=== PATIENT | female | born 1985 | race Caucasian/White ===

== ENCOUNTER 2016-12-03 21:05 | Emergency (ER) | payer SELFPAY ==
[~2016-12-03] VITALS: Ht 160 cm; Wt 65.8 kg
[2016-12-03 21:20] VITALS: BP 130/74
--- NOTE | 2016-12-03 23:20 | NUR ---
CALLED PATIENT MULTIPLE TIMES PER ER MD REQUEST FOR PATIENT TO RETURN TO ER. SPOKE TO PATIENT'S BF AND WILL RELAY THE MESSAGE TO PATIENT TO CALL BACK.
--- NOTE | 2016-12-04 00:25 | NUR ---
Patient ambulated to bed 04.
--- NOTE | 2016-12-04 00:36 | NUR ---
31Y/F PATIENT PRESENT TO ED WITH C/O ABDOMINAL PAIN. PATIENT STATES THAT SHE WAS DIAGNOSED UTI 2 WKS AGO AND WAS TREATED BY CLINIC SUPERVISOR WITH ATB. TODAY PAIN INCREASES. PT.IUP 9 WKS. HX.ASTHMA, ANXIETY; SKIN IS PINK/WARM/DRY; AAOX4 WITH EVEN AND STEADY GAIT; LUNGS CLEAR BL; HR EVEN AND REGULAR; PT DENIES ANY FEVER, CP, SOB, OR COUGH AT THIS TIME; PATIENT STATES PAIN OF 5/10 AT THIS TIME; VSS; PATIENT POSITIONED FOR COMFORT; HOB ELEVATED; BEDRAILS UP X2; BED DOWN. ER MD MADE AWARE OF PT STATUS.
--- NOTE | 2016-12-04 01:42 | NUR ---
Patient back from US via wheelchair per tech.
--- NOTE | 2016-12-04 02:15 | NUR ---
Patient discharged with v/s stable. Written and verbal after care instructions given and explained. Patient alert, oriented and verbalized understanding of instructions. Ambulatory with steady gait. All questions addressed prior to discharge. ID band removed. Patient advised to follow up with PMD. Rx of KEFLEX 500 MG, [facility] +DHA SOFTGEL given. Patient educated on indication of medication including possible reaction and side effects. Opportunity to ask questions provided and answered.
[2016-12-04 02:16] VITALS: BP 130/74
== END 2016-12-04 02:15 | disposition home or self-care (01) ==
LOC: MED 21:05
DX: O23.41 Unspecified infection of urinary tract in pregnancy, first trimester (principal); O99.511 Diseases of the respiratory system complicating pregnancy, first trimester; J45.909 Unspecified asthma, uncomplicated; F41.9 Anxiety disorder, unspecified; Z3A.09 9 weeks gestation of pregnancy

== ENCOUNTER 2017-05-24 18:10 | Observation (INO) | payer OTHER | END 2017-05-24 23:00 | disposition left against medical advice (07) | LOC: MLD 18:10 | PROVIDERS: ADMIT Obstetrics & Gynecology; ATTEND Obstetrics & Gynecology | DX: O26.899 Other specified pregnancy related conditions, unspecified trimester (principal); M54.5 Low back pain; Z3A.00 Weeks of gestation of pregnancy not specified | CPT/HCPCS: G0378 ==

== ENCOUNTER 2019-03-01 21:38 | Emergency (ER) | payer OTHER ==
[~2019-03-01] VITALS: Ht 160 cm; Wt 74.8 kg
[2019-03-01 21:40] VITALS: BP 133/90
--- NOTE | 2019-03-01 21:43 | NUR ---
TO LOBBY A/W BED, XRAY AMBULATORY
--- NOTE | 2019-03-01 22:09 | NUR ---
PT AMBULATED TO ER BED 12
--- NOTE | 2019-03-01 22:20 | NUR ---
33 YO F BIB SELF PRESENTS TO ED C/O 06/28 LEFT INDEX AND MIDDLE FINGER PAIN X 2 DAYS RADIATING TO UPPER ARM. INDEX FINGER HAS LARGE SCAR WITH SWELLING AND DEFORMITY NOTED. PT STATES SHE JAMMED FINGER IN CAR DOOR SEVERAL MONTHS AGO AND HAD SURGERY. SHE STATES THERE WERE 3 SCREWS PLACED IN FINGER. PT STATES SHE WAS GIVEN HYDROCODONE FOR PAIN BUT RAN OUT OF RX. -- PT AWAKE, A/O X 4. APPEARS CALM. IS COOPERATIVE. ANSWERING QUESTIONS APPROPRIATELY. BEHAVIOR AGE APPROPRIATE. -- SKIN PINK, WARM, DRY. BREATHING EVEN, UNLABORED. -- CMS IN TACT. PMH-- DENIES
[2019-03-01 23:10] VITALS: BP 133/90
== END 2019-03-01 23:10 | disposition home or self-care (01) ==
LOC: MED 21:38
DX: M79.645 Pain in left finger(s) (principal); J45.909 Unspecified asthma, uncomplicated
CPT/HCPCS: 73140; 99283

== ENCOUNTER 2019-05-12 14:07 | Emergency (ER) | payer OTHER ==
[~2019-05-12] VITALS: Ht 160 cm; Wt 70.3 kg
[2019-05-12 14:24] VITALS: BP 131/82
--- NOTE | 2019-05-12 14:29 | NUR ---
WAIT IN LOBBY,VSS.
--- NOTE | 2019-05-12 15:08 | NUR ---
PT TO BED 10 WITH STEADY GAIT
--- NOTE | 2019-05-12 15:35 | NUR ---
C/O LOWER ABDOMINAL PAIN RADIATING TO LOWER BACK, NAUSEA AND DIARRHEA X 2 WEEKS. PAIN 2/10. PATIENT STATES PAIN WORSENS AFTER EATING. BOWEL SOUNDS ACTIVE IN ALL 4 QUADRANTS, ABDOMEN SOFT AND FLAT. AA0X4. VSS. BED IS DOWN, LOCKED, EBD RIAL X 1, ERMD TO SEE PT. MED HX: INDEX & MIDDLE FINGER OF LEFT HAND SURGERY,DEPRESSION,BIPOLAR
--- NOTE | 2019-05-12 15:43 | NUR ---
20 G INSRTED, LABS DRAWN BEDSIDE
--- NOTE | 2019-05-12 16:24 | NUR ---
DR ATWOOD AT BEDSIDE
[2019-05-12 16:37] LABS: BASOPHILS % (AUTO) 0.5 % (0.0-2.0); EOSINOPHILS # (AUTO) 0.1 K/uL (0-0.4); EOSINOPHILS % (AUTO) 1.6 % (0.0-4.0); HEMATOCRIT 45.5 % (36-48); HEMOGLOBIN 15.2 g/dL (12.0-16.0); LYMPHOCYTES # (AUTO) 2.6 K/uL (2.5-16.5); LYMPHOCYTES % (AUTO) 37.6 % (20.5-51.1); MEAN CORPUSCULAR HEMOGLOBIN 31 pg (27-31); MEAN CORPUSCULAR HGB CONC 33 g/dL (33-37); MEAN CORPUSCULAR VOLUME 93.4 fL (80-94); MONOCYTES # (AUTO) 0.5 K/uL (0.8-1.0); MONOCYTES % (AUTO) 6.9 % (1.7-9.3); NEUTROPHILS # (AUTO) 3.6 K/uL (1.8-7.7); NEUTROPHILS % (AUTO) 53.4 % (42.2-75.2); PLATELET COUNT (AUTO) 178 K/uL (140-450); RED BLOOD CELL COUNT(AUTO) 4.87 MIL/uL (4.20-5.40); RED CELL DISTRIBUTION WIDTH 13.3 % (11.6-13.7); WHITE BLOOD COUNT (AUTO) 6.8 K/uL (4.8-10.8)
[2019-05-12 16:39] LABS: APPEARANCE,URINE CLEAR (CLEAR); BILIRUBIN,URINE NEGATIVE (NEGATIVE); BLOOD, URINE NEGATIVE (NEGATIVE); COLOR,URINE YELLOW (YELLOW); LEUKOCYTE ESTERASE ,URINE NEGATIVE (NEGATIVE); NITRITE, URINE NEGATIVE (NEGATIVE); PH,URINE 7.5 (5.0-9.0); UGLUCOSE NEGATIVE (NEGATIVE)
--- NOTE | 2019-05-12 16:41 | NUR ---
US AT BEDSIDE
[2019-05-12 16:43] LABS: ANION GAP 13.3 (8-16); CARBON DIOXIDE 27.1 mmol/L (21-32); CREATININE 0.7 mg/dL (0.6-1.3); POTASSIUM 3.4 mmol/L (3.5-5.1)
[2019-05-12 16:48] LABS: ALBUMIN 3.5 g/dL (3.4-5.0); TOTAL BILIRUBIN 0.2 mg/dL (0.0-1.0)
--- NOTE | 2019-05-12 17:21 | NUR ---
pt states she is in pain, dr rodriguez made aware.
--- NOTE | 2019-05-12 17:54 | NUR ---
PT REQUESTING PAIN MEDICATIONS, PER VERBAL ORDER GIVE 2 MG MORPHINE IVP
[2019-05-12] MEDS ORDERED: MORPHINE SULFATE 2 MG/ML SYR IVP ONE (17:55)
[2019-05-12 18:45] VITALS: BP 100/62
== END 2019-05-12 18:45 | disposition home or self-care (01) ==
LOC: MED 14:07
DX: N83.202 Unspecified ovarian cyst, left side (principal); J45.909 Unspecified asthma, uncomplicated
CPT/HCPCS: 36415; 76856; 80053; 81003; 81025; 83690; 85025; 96374; 99284; J2270; Q0092

== ENCOUNTER 2019-06-18 10:52 | Emergency (ER) | payer OTHER ==
[~2019-06-18] VITALS: Ht 160 cm; Wt 69.4 kg
[2019-06-18 10:57] VITALS: BP 140/73
[2019-06-18] MEDS ORDERED: AMPH10CE PO (11:00)
[2019-06-18] MEDS ORDERED: ARIP5TAB8 PO (11:00)
[2019-06-18 11:57] VITALS: BP 130/80
== END 2019-06-18 11:57 | disposition home or self-care (01) ==
LOC: MED 10:52
DX: R11.0 Nausea (principal); R10.9 Unspecified abdominal pain; F32.9 Major depressive disorder, single episode, unspecified; Z85.9 Personal history of malignant neoplasm, unspecified; Z98.890 Other specified postprocedural states; Z79.899 Other long term (current) drug therapy
CPT/HCPCS: 81002; 81025; 99283

== ENCOUNTER 2020-06-09 11:46 | Emergency (ER) | payer OTHER ==
[~2020-06-09] VITALS: Ht 160 cm; Wt 74.8 kg
[~2020-06-09 11:46] MED LIST: AMPH10CE PO; ARIP5TAB8 PO
[2020-06-09 11:48] VITALS: BP 111/61
--- NOTE | 2020-06-09 11:55 | NUR ---
PT IN WHEELCHAIR TO ER BED 11
--- NOTE | 2020-06-09 12:06 | NUR ---
34 YO FEMALE CO 06/28 GENERALIZED ABD PAIN SINCE 06/06/20. PT HAD TUMMY TUCK IN [place]. PT HAS HEMOVAC IN PLACE WITH BRIGHT RED DRAINAGE IN TUBE ONLY. BANDAGES WERE UNDONE TO VISUALIZE THE INCISION SITES. BRUISING AND PAIN TO TOUCH ON LEFT HIP. INCISION SITES HAVE DRIED BLOOD AND SUTURES IN PLACE, BUT NO DISCHARGE NOTED. PT IS A/O X4. NO MEDS- NO RX
[2020-06-09] MEDS ORDERED: MORPHINE SULFATE 2 MG/ML SYR IM ONE (12:30)
[2020-06-09 13:17] VITALS: BP 111/61
--- NOTE | 2020-06-09 13:17 | NUR ---
Patient discharged with v/s stable. Written and verbal after care instructions given and explained. Patient alert, oriented and verbalized understanding of instructions. Wheel Chair Assisted with to home. All questions addressed prior to discharge. ID band removed. Patient advised to follow up with PMD. Rx of COLACE AND NORCO given. Patient educated on indication of medication including possible reaction and side effects. Opportunity to ask questions provided and answered.
== END 2020-06-09 13:17 | disposition home or self-care (01) ==
LOC: MED 11:46
DX: G89.18 Other acute postprocedural pain (principal); R10.84 Generalized abdominal pain; F32.9 Major depressive disorder, single episode, unspecified; Z98.890 Other specified postprocedural states; Z79.899 Other long term (current) drug therapy
CPT/HCPCS: 81025; 96372; 99283; J2270

== ENCOUNTER 2020-06-18 20:20 | Emergency (ER) | payer OTHER ==
[~2020-06-18] VITALS: Ht 160 cm; Wt 77.6 kg
[2020-06-18 20:23] VITALS: BP 129/79
--- NOTE | 2020-06-18 20:23 | NUR ---
PT AMBULATED TO ER BED 12 W/ STEADY GAIT.
--- NOTE | 2020-06-18 20:23 | NUR ---
34 Y/O FEMALE PRESENTED TO ED C/O BL LOWER EXTREMITY SWELLING X 2 WEEKS. PT STATES SHE HAD ABDOMINAL SURGERY 2 WEEKS AGO AND HAS HAD SWELLING IN HER LEGS SINCE THEN. PT RATES PAIN 8/10 , DESCRIBES BURNING SENSATION. + BL PEDAL PULSES , CAP REFIL < 3 SEC , +CMS , + ROM . PT STATES PAIN IS WORSE WHEN SHE IS WALKING. PT RESTING IN BED , LOCKED AND IN LOWEST POSITION,HOB ELEVATED, SIDE RAIL X1. ERMD MADE AWARE OF PT STATUS. PMH: BIPOLAR, DEPRESSION NKA
--- NOTE | 2020-06-18 21:00 | NUR ---
LAB AT BEDSIDE.
[2020-06-18 21:10] LABS: BASOPHILS % (AUTO) 0.4 % (0.0-2.0); EOSINOPHILS # (AUTO) 0.3 K/uL (0-0.4); EOSINOPHILS % (AUTO) 2.8 % (0.0-4.0); HEMATOCRIT 30.5 % (36-48); HEMOGLOBIN 10.1 g/dL (12.0-16.0); LYMPHOCYTES # (AUTO) 2.6 K/uL (2.5-16.5); LYMPHOCYTES % (AUTO) 24.6 % (20.5-51.1); MEAN CORPUSCULAR HEMOGLOBIN 32 pg (27-31); MEAN CORPUSCULAR HGB CONC 33 g/dL (33-37); MEAN CORPUSCULAR VOLUME 96.4 fL (80-94); MONOCYTES # (AUTO) 0.7 K/uL (0.8-1.0); MONOCYTES % (AUTO) 6.8 % (1.7-9.3); NEUTROPHILS % (AUTO) 65.4 % (42.2-75.2); PLATELET COUNT (AUTO) 385 K/uL (140-450); RED BLOOD CELL COUNT(AUTO) 3.16 MIL/uL (4.20-5.40); RED CELL DISTRIBUTION WIDTH 12.8 % (11.6-13.7); WHITE BLOOD COUNT (AUTO) 10.8 K/uL (4.8-10.8)
[2020-06-18] MEDS ORDERED: KETOROLAC 30 MG/ML VIAL IM ONE (21:15)
[2020-06-18 21:25] LABS: ALBUMIN 2.7 g/dL (3.4-5.0); ANION GAP 12.1 (8-16); CARBON DIOXIDE 29.2 mmol/L (21-32); CREATININE 0.9 mg/dL (0.6-1.3); POTASSIUM 4.3 mmol/L (3.5-5.1); TOTAL BILIRUBIN 0.4 mg/dL (0.0-1.0)
[2020-06-18 22:22] LABS: APPEARANCE,URINE SL CLOUDY (CLEAR); BILIRUBIN,URINE NEGATIVE (NEGATIVE); BLOOD, URINE 3+ (NEGATIVE); COLOR,URINE YELLOW (YELLOW); LEUKOCYTE ESTERASE ,URINE TRACE (NEGATIVE); NITRITE, URINE NEGATIVE (NEGATIVE); UGLUCOSE NEGATIVE (NEGATIVE)
--- NOTE | 2020-06-18 22:23 | NUR ---
Note undone in EDM - 06/18/20 at 2254 by CORTEZ 34 Y/O FEMALE PRESENTED TO ED C/O BL LOWER EXTREMITY SWELLING X 2 WEEKS. PT STATES SHE HAD ABDOMINAL SURGERY 2 WEEKS AGO AND HAS HAD SWELLING IN HER LEGS SINCE THEN. PT RATES PAIN 8/10 , DESCRIBES BURNING SENSATION. + BL PEDAL PULSES , CAP REFIL < 3 SEC , +CMS , + ROM . PT STATES PAIN IS WORSE WHEN SHE IS WALKING. PT RESTING IN BED , LOCKED AND IN LOWEST POSITION,HOB ELEVATED, SIDE RAIL X1. ERMD MADE AWARE OF PT STATUS. PMH: BIPOLAR, DEPRESSION NKA
[2020-06-18 22:33] VITALS: BP 129/79
--- NOTE | 2020-06-18 22:33 | NUR ---
Patient discharged with v/s stable. Written and verbal after care instructions given and explained. Patient alert, oriented and verbalized understanding of instructions. Ambulatory with steady gait. All questions addressed prior to discharge. ID band removed. Patient advised to follow up with PMD. Rx of LASIX given. Patient educated on indication of medication including possible reaction and side effects. Opportunity to ask questions provided and answered.
[2020-06-18 22:50] LABS: RBC,URINE 0-5 /HPF (0-5)
== END 2020-06-18 22:33 | disposition home or self-care (01) ==
LOC: MED 20:20
DX: R60.9 Edema, unspecified (principal); Z79.899 Other long term (current) drug therapy; Z98.870 Personal history of in utero procedure during pregnancy
CPT/HCPCS: 36415; 71045; 80053; 81001; 81025; 85025; 87086; 96372; 99284; J1885; Q0092

== ENCOUNTER 2020-07-07 20:02 | Emergency (ER) | payer OTHER ==
[~2020-07-07] VITALS: Ht 160 cm; Wt 72.6 kg
[2020-07-07 20:25] VITALS: BP 130/90
--- NOTE | 2020-07-07 20:45 | NUR ---
PT AMBULATED TO BED 12 WITH STEADY GAIT.
[2020-07-07 21:12] LABS: BASOPHILS % (AUTO) 0.6 % (0.0-2.0); EOSINOPHILS # (AUTO) 0.1 K/uL (0-0.4); EOSINOPHILS % (AUTO) 1.4 % (0.0-4.0); HEMATOCRIT 39.5 % (36-48); LYMPHOCYTES # (AUTO) 2.2 K/uL (2.5-16.5); LYMPHOCYTES % (AUTO) 34.6 % (20.5-51.1); MEAN CORPUSCULAR HEMOGLOBIN 31 pg (27-31); MEAN CORPUSCULAR HGB CONC 33 g/dL (33-37); MEAN CORPUSCULAR VOLUME 92.2 fL (80-94); MONOCYTES # (AUTO) 0.5 K/uL (0.8-1.0); MONOCYTES % (AUTO) 7.7 % (1.7-9.3); NEUTROPHILS # (AUTO) 3.6 K/uL (1.8-7.7); NEUTROPHILS % (AUTO) 55.7 % (42.2-75.2); PLATELET COUNT (AUTO) 259 K/uL (140-450); RED BLOOD CELL COUNT(AUTO) 4.28 MIL/uL (4.20-5.40); RED CELL DISTRIBUTION WIDTH 12.9 % (11.6-13.7); WHITE BLOOD COUNT (AUTO) 6.5 K/uL (4.8-10.8)
[2020-07-07 21:12] LABS: APPEARANCE,URINE CLEAR (CLEAR); BILIRUBIN,URINE NEGATIVE (NEGATIVE); BLOOD, URINE 2+ (NEGATIVE); COLOR,URINE YELLOW (YELLOW); LEUKOCYTE ESTERASE ,URINE NEGATIVE (NEGATIVE); NITRITE, URINE NEGATIVE (NEGATIVE); UGLUCOSE NEGATIVE (NEGATIVE)
--- NOTE | 2020-07-07 21:17 | NUR ---
PT HAD A TUMMY TUCK IN [place] 06/07/20 AND WENT LAST WEEK TO HAVE HER SUTURES REMOVED. SHE BELIEVES SHE HAS AN INFECTION TO THE AREA WHERE HER BELLY BUTTON NOW IS. REDNESS, SWELLING, AND DRAINAGE (SANGANIOUS) TO AREA. PT C/O SHARP 10/10 INTERMITTENT PAIN. AFEBRILE, NO N/V/D. BED IN LOWEST POSITION AND SIDERAIL UP X 1. NKA NO HX
[2020-07-07 21:19] LABS: WBC,URINE 0-5 /HPF (0-5)
[2020-07-07] MEDS ORDERED: MORPHINE SULFATE 2 MG/ML SYR IVP STA (21:21)
[2020-07-07] MEDS ORDERED: NACL 0.9% 1,000 ML IV ONE (21:25)
[2020-07-07 21:28] LABS: ALBUMIN 3.7 g/dL (3.4-5.0); ANION GAP 12.7 (8-16); CARBON DIOXIDE 28.6 mmol/L (21-32); CREATININE 0.9 mg/dL (0.6-1.3); POTASSIUM 3.3 mmol/L (3.5-5.1); TOTAL BILIRUBIN 0.3 mg/dL (0.0-1.0)
--- NOTE | 2020-07-07 22:00 | NUR ---
PT RESTING MORE COMFORTABLY AT THIS TIME. PAIN HAS DECREASED
--- NOTE | 2020-07-07 22:13 | NUR ---
PT TO CT VIA WHEELCHAIR. CONSENT SIGNED BY PT
[2020-07-07] MEDS ORDERED: MORPHINE SULFATE 4 MG/ML SYR IVP SCH (23:45)
[2020-07-08] MEDS ORDERED: ACETAMINOPHEN 325 MG TAB PO PRN
[2020-07-08] MEDS ORDERED: NACL 0.9% 1,000 ML IV SCH
[2020-07-08] MEDS ORDERED: LORazepam 2 MG/ML VIAL IVP PRN
[2020-07-08] MEDS ORDERED: ONDANSETRON 4 MG/2 ML VIAL IVP PRN
[2020-07-08] MEDS ORDERED: HYDROcodone/APAP 5/325 MG 1 TAB TAB PO PRN
[2020-07-08] MEDS ORDERED: MORPHINE SULFATE 2 MG/ML SYR IVP PRN
[2020-07-08] MEDS ORDERED: PIPERACILLIN/TAZOBACTAM 3.375 GM in DEXTROSE 5% 50 ML IV ONE (00:30)
[2020-07-08] MEDS ORDERED: PIPERACILLIN/TAZOBACTAM 3.375 GM VIAL IV ONE (00:33)
--- NOTE | 2020-07-08 00:46 | NUR ---
PT WAS TO BE ADMITTED TO MED/SURG BUT STATES SHE'S UNABLE TO STAY DUE TO HAVING 2 CHILDREN AT HOME AND NO ONE TO WATCH THEM. PT SIGNING AMA PAPERWORK
[2020-07-08 00:59] VITALS: BP 127/87
--- NOTE | 2020-07-08 01:01 | NUR ---
PT LEFT AMA BUT WAS GIVEN PRESCRIPTIONS AND TOLD TO FOLLOW-UP WITH PCP TOMORROW. IT SYMPTOMS WORSEN PT TOLD TO COME BACK TO ED
--- NOTE | 2020-07-08 01:01 | NUR ---
Patient does not wish to proceed with medical care recommended by DR JAQUEZ. Patient given information related to possible complications, up to and including , which could occur as a result of leaving hospital at this time. Patient verbalizes understanding of risks involved leaving against medical advice. Patient has signed AMA form.
[2020-07-08] MEDS ORDERED: PIPERACILLIN/TAZOBACTAM 3.375 GM in DEXTROSE 5% 50 ML IV SCH (05:00)
[2020-07-08] MEDS ORDERED: ENOXAPARIN 40 MG/0.4 ML SYR SUBQ SCH (09:00)
[2020-07-08] MEDS ORDERED: KETOROLAC 30 MG/ML VIAL ONE (19:00)
== END 2020-07-08 01:00 | disposition left against medical advice (07) ==
LOC: MED 20:02
DX: T81.40XA Infection following a procedure, unspecified, initial encounter (principal); L03.311 Cellulitis of abdominal wall; Z79.899 Other long term (current) drug therapy; Y83.8 Other surgical procedures as the cause of abnormal reaction of the patient, or of later complication, without mention of misadventure at the time of the procedure
CPT/HCPCS: 36415; 74177; 80053; 81001; 82150; 83690; 84703; 85025; 87040; 87426; 96361; 96365; 96375; 96376; 99285; J1885; J2270; J2543; J7030; Q9967

== ENCOUNTER 2020-07-08 17:29 | Emergency (ER) | payer OTHER ==
[~2020-07-08] VITALS: Ht 160 cm; Wt 72.6 kg
[2020-07-08 17:40] VITALS: BP 121/85
--- NOTE | 2020-07-08 17:41 | NUR ---
Patient ambulated to bed 4. RN evaluating patient at bedside.
--- NOTE | 2020-07-08 17:59 | NUR ---
Dr. Mendez is evaluating the patient at bedside.
[2020-07-08] MEDS ORDERED: metroNIDAZOLE 500 MG/NS PREMIX 100 ML IV ONE ×2 (18:05→18:30)
[2020-07-08] MEDS ORDERED: NACL 0.9% 1,000 ML IV ONE (18:05)
[2020-07-08] MEDS ORDERED: KETOROLAC 30 MG/ML VIAL IVP ONE (18:10)
[2020-07-08] MEDS ORDERED: HYDROcodone/APAP 5/325 MG 1 TAB TAB PO PRN (18:15)
[2020-07-08] MEDS ORDERED: MORPHINE SULFATE 4 MG/ML SYR IVP PRN (18:15)
[2020-07-08] MEDS ORDERED: ACETAMINOPHEN 325 MG TAB PO PRN (18:15)
[2020-07-08] MEDS ORDERED: NACL 0.9% 1,000 ML IV SCH (18:15)
[2020-07-08] MEDS ORDERED: ONDANSETRON 4 MG/2 ML VIAL IVP PRN (18:15)
[2020-07-08 18:38] LABS: RED BLOOD CELL COUNT(AUTO) 4.13 MIL/uL (4.20-5.40); WHITE BLOOD COUNT (AUTO) 5.6 K/uL (4.8-10.8)
--- NOTE | 2020-07-08 18:38 | NUR ---
Dr. Resendiz is evaluating the patient at bedside.
--- NOTE | 2020-07-08 18:38 | NUR ---
T WAS HERE YESTERDAY D/T PAIN AND CYSTS IN ABD. PT WAS SUPPOSED TO BE ADMITTED LAST NIGHT BUT REFUSED. PT STILL HAS PAIN IN HER ABD 5 RIGHT NOW. PT AOX4 , AFIBRILE , AMBULATORY WITH STEADY GAIT , SCE , FLAT SOFT ABDOMEN. PMHXS ASTHMA
[2020-07-08 18:39] LABS: BASOPHILS % (AUTO) 0.6 % (0.0-2.0); EOSINOPHILS % (AUTO) 1.7 % (0.0-4.0); HEMOGLOBIN 12.5 g/dL (12.0-16.0); LYMPHOCYTES # (AUTO) 2.2 K/uL (2.5-16.5); LYMPHOCYTES % (AUTO) 39.5 % (20.5-51.1); MEAN CORPUSCULAR HEMOGLOBIN 30 pg (27-31); MEAN CORPUSCULAR HGB CONC 33 g/dL (33-37); MONOCYTES # (AUTO) 0.4 K/uL (0.8-1.0); NEUTROPHILS # (AUTO) 2.9 K/uL (1.8-7.7); NEUTROPHILS % (AUTO) 51.2 % (42.2-75.2); PLATELET COUNT (AUTO) 244 K/uL (140-450); RED CELL DISTRIBUTION WIDTH 12.8 % (11.6-13.7)
[2020-07-08 18:40] LABS: EOSINOPHILS # (AUTO) 0.1 K/uL (0-0.4)
--- NOTE | 2020-07-08 18:40 | NUR ---
DR Ba AT BEDSIDE EVALUATING PT.
[2020-07-08 18:47] LABS: APPEARANCE,URINE HAZY (CLEAR); BILIRUBIN,URINE NEGATIVE (NEGATIVE); BLOOD, URINE 3+ (NEGATIVE); COLOR,URINE YELLOW (YELLOW); UGLUCOSE NEGATIVE (NEGATIVE)
[2020-07-08 18:48] LABS: LEUKOCYTE ESTERASE ,URINE TRACE (NEGATIVE); NITRITE, URINE NEGATIVE (NEGATIVE)
[2020-07-08 18:52] LABS: RBC,URINE >100 /HPF (0-5)
--- NOTE | 2020-07-08 18:54 | NUR ---
DC ALL MEDS AND IV PER DR ANTONIO AND DR ELLER.
[2020-07-08 18:57] LABS: ANION GAP 10.4 (8-16); CARBON DIOXIDE 29.3 mmol/L (21-32); CREATININE 0.8 mg/dL (0.6-1.3); POTASSIUM 3.7 mmol/L (3.5-5.1); TOTAL BILIRUBIN 0.3 mg/dL (0.0-1.0)
[2020-07-08 18:58] LABS: ALBUMIN 3.5 g/dL (3.4-5.0)
[2020-07-08 19:03] LABS: PROTHROMBIN TIME 9.8 secs (10.8-13.4)
--- NOTE | 2020-07-08 19:03 | NUR ---
VERBAL ORDER AND READ BACK FOR TORADOL IVP.
[2020-07-08 19:15] VITALS: BP 121/85
--- NOTE | 2020-07-08 19:16 | NUR ---
Patient discharged with v/s stable. Written and verbal after care instructions given and explained regarding abdominal pain. Patient alert, oriented and verbalized understanding of instructions. Ambulatory with steady gait. All questions addressed prior to discharge. ID band removed. Patient advised to follow up with PMD. Rx of tramadol given. Patient educated on indication of medication including possible reaction and side effects. Opportunity to ask questions provided and answered.
[2020-07-09] MEDS ORDERED: ARIPiprazole 10 MG TAB PO SCH (09:00)
== END 2020-07-08 19:15 | disposition home or self-care (01) ==
LOC: MED 17:29 → MMU 18:27 → UNDOADMIN 18:27 → MED 19:15
DX: T88.9XXA Complication of surgical and medical care, unspecified, initial encounter (principal); R10.30 Lower abdominal pain, unspecified; J45.909 Unspecified asthma, uncomplicated; Z79.899 Other long term (current) drug therapy
CPT/HCPCS: 36415; 71045; 80053; 81001; 83605; 85025; 85610; 85730; 87040; 87086; 93005; 96374; 99285; J1885; J7030; Q0092; J3490